=== PATIENT | male | born 1975 | race Two or more races ===

== ENCOUNTER 2017-09-08 11:31 | Emergency (ER) | payer MEDICAID ==
[~2017-09-08] VITALS: Ht 165.1 cm; Wt 92.0 kg
[~2017-09-08 11:31] MED LIST: ACET-2178 PO; ALBU18HF2 IH; BACL-141 PO; LISI-186 PO
[2017-09-08 14:59] VITALS: BP 150/100
== END 2017-09-08 15:04 | disposition home or self-care (01) ==
LOC: ER 12:46
DX: B34.9 Viral infection, unspecified (principal); F17.210 Nicotine dependence, cigarettes, uncomplicated; I10 Essential (primary) hypertension; J45.909 Unspecified asthma, uncomplicated
CPT/HCPCS: 71045; 87070; 87430; 99285

== ENCOUNTER 2018-10-07 18:57 | Emergency (ER) | payer OTHER, MEDICAID ==
[~2018-10-07] VITALS: Ht 165.1 cm; Wt 94.0 kg
[2018-10-08] MEDS ORDERED: SODIUM CHLORIDE 0.9% 1,000 ML IV ONE (00:35)
[2018-10-08] MEDS ORDERED: HYDROCODONE/ACETAMINOPHEN 5/325MG TABLET PO ONE (00:45)
[2018-10-08 00:50] LABS: BASOPHILS % 1.3 % (0.0-2.0); EOSINOPHILS % 3.7 % (0.0-5.0); HEMATOCRIT. 41.1 % (42.0-52.0); HEMOGLOBIN. 14.1 g/dL (14.0-18.0); LYMPHOCYTES % 36.8 % (20.0-50.0); MEAN CORPUSCULAR HEMOGLOBIN 28.8 pg (28.0-32.0); MEAN CORPUSCULAR VOLUME 83.9 fL (80.0-94.0); MEAN PLATELET VOLUME 8.4 fl (7.4-10.4); NEUTROPHILS % 50.2 % (40.0-76.0); PLATELET 243 x1000/uL (130-400); RED BLOOD CELL COUNT 4.89 mill/uL (4.7-6.1); RED CELL DISTRIBUTION WIDTH 13.3 % (11.6-14.6)
[2018-10-08 00:53] LABS: CHLORIDE 108 mEq/L (98-107)
[2018-10-08 02:00] VITALS: BP 115/65
== END 2018-10-08 02:30 | disposition home or self-care (01) ==
LOC: ER 18:57
DX: I10 Essential (primary) hypertension (principal); R51 Headache; J45.909 Unspecified asthma, uncomplicated; E78.00 Pure hypercholesterolemia, unspecified; F17.200 Nicotine dependence, unspecified, uncomplicated
CPT/HCPCS: 36415; 70450; 71045; 80053; 83880; 84484; 85025; 93005; 99284; J7030

== ENCOUNTER 2019-07-21 05:46 | Emergency (ER) | payer OTHER, MEDICAID ==
[~2019-07-21] VITALS: Ht 167.6 cm; Wt 90.0 kg
[~2019-07-21 05:46] MED LIST changes: -ACET-2178 PO; +TOPUD PO
[2019-07-21 06:57] LABS: BASOPHILS % 1.2 % (0.0-2.0); EOSINOPHILS % 3.1 % (0.0-5.0); HEMATOCRIT. 44.3 % (42.0-52.0); HEMOGLOBIN. 15.3 g/dL (14.0-18.0); LYMPHOCYTES % 30.6 % (20.0-50.0); MEAN CORPUSCULAR HEMOGLOBIN 28.4 pg (28.0-32.0); MEAN CORPUSCULAR VOLUME 82.3 fL (80.0-94.0); MEAN PLATELET VOLUME 8.6 fl (7.4-10.4); MONOCYTES % 7.7 % (2.0-8.0); NEUTROPHILS % 57.4 % (40.0-76.0); PLATELET 263 x1000/uL (130-400); RED BLOOD CELL COUNT 5.38 mill/uL (4.7-6.1); RED CELL DISTRIBUTION WIDTH 13.1 % (11.6-14.6)
[2019-07-21 07:19] LABS: CHLORIDE 107 mEq/L (98-107)
[2019-07-21] MEDS: ONDANSETRON HCL 4MG/2ML INJ IV ONE (07:45)
[2019-07-21] MEDS: MORPHINE SULFATE 2 MG/ML CPJ (NOT FOR IM USE) IV ONE ×2 (09:00→09:34)
[2019-07-21 10:40] VITALS: BP 136/86
[2019-07-21] MEDS ORDERED: HYDRALAZINE 20MG/ML VIAL IV ONE (11:00)
== END 2019-07-21 12:50 | disposition home or self-care (01) ==
LOC: ER 05:46
DX: R07.9 Chest pain, unspecified (principal); R51 Headache; J45.909 Unspecified asthma, uncomplicated; I10 Essential (primary) hypertension; E78.00 Pure hypercholesterolemia, unspecified; Z98.890 Other specified postprocedural states
CPT/HCPCS: 36415; 71045; 80053; 83880; 84484; 85025; 93005; 96374; 96375; 99284; J2270; J2405